=== PATIENT | male | born 1940 | race Caucasian/White ===

== ENCOUNTER 2016-09-04 10:31 | Emergency (ER) | payer MEDICARE ==
[~2016-09-04] VITALS: Ht 175.3 cm; Wt 82.6 kg
[2016-09-04] MEDS ORDERED: LISI-338 PO (10:59)
[2016-09-04 11:39] LABS: BASO % 0 % (0-3); EOS % 3 % (0-3); HEMATOCRIT 42.1 % (39.0-53.0); HEMOGLOBIN 14.4 g/dL (13.0-17.5); LYMPH # 1.9 x10^3/uL (1.0-4.8); LYMPH % 30 % (24-48); MEAN CORPUSCULAR HEMOGLOBIN 32 pg (25-35); MEAN CORPUSCULAR HGB CONC 34 g/dL (31-37); MEAN CORPUSCULAR VOLUME 93 fL (79-100); MONO % 9 % (0-9); NEUT % 58 % (31-73); PLATELET COUNT 189 x10^3/uL (140-400); RED BLOOD COUNT 4.51 x10^6/uL (4.30-5.70); RED CELL DISTRIBUTION WIDTH 13.5 % (11.5-14.5); WHITE BLOOD COUNT 6.3 x10^3/uL (4.0-11.0)
[2016-09-04 11:46] LABS: CALCIUM 9.9 mg/dL (8.5-10.1); CREATININE 0.8 mg/dL (0.7-1.3); POTASSIUM 4.6 mmol/L (3.5-5.1)
--- NOTE | 2016-09-04 11:58 | RAD ---
Indication left hand numbness. Headache and fatigue. Axial images through the head were obtained. No prior imaging of the head is available. The calvarium appears unremarkable. The visualized paranasal sinuses appear normal. There is some underlying atrophy. There is enlargement of the cisterna magna, a normal variant. No mass or midline shift is seen. No hemorrhage is apparent. There is a subtle lucency in the left thalamus. This probably reflects old microvascular disease. If additional imaging evaluation is warranted an MRI examination could be performed. IMPRESSION: No definite acute intracranial finding. Subtle lucency in the left thalamus, probably reflecting old microvascular disease. See above discussion One or more of the following individualized dose reduction techniques were utilized for this examination: 1. Automated exposure control 2. Adjustment of the mA and/or kV according to patient size 3. Use of iterative reconstruction technique
--- NOTE | 2016-09-04 12:45 | PHYS DOC ---
Past Medical History Past Medical History: Asthma, Bronchitis, Hypertension Past Surgical History: Other Additional Past Surgical Histo: hernia repair Alcohol Use: None Drug Use: None Adult General Chief Complaint Chief Complaint: WEAKNESS/GENERALIZED HPI HPI Patient is a 76 year old male who presents with his for evaluation of left hand tingling that lasted minutes associated with gradual onset mild headache and followed by general fatigue. He is now feeling some fatigue, but headache is improving. He denies vision changes, dizziness, nausea or vomiting , chest pain, back pain, palpitations, diaphoresis, fever or chills, focal weakness, neck pain or manipulation, trauma. Review of Systems Review of Systems Constitutional: Denies fever or chills [] Eyes: Denies change in visual acuity, redness, or eye pain [] HENT: Denies nasal congestion or sore throat [] Respiratory: Denies cough or shortness of breath [] Cardiovascular: No additional information not addressed in HPI [] GI: Denies abdominal pain, nausea, vomiting, bloody stools or diarrhea [] : Denies dysuria or hematuria [] Musculoskeletal: Denies back pain or joint pain [] Integument: Denies rash or skin lesions [] Neurologic: Denies focal weakness [] Endocrine: Denies polyuria or polydipsia [] Allergies Allergies Allergies Uncoded Allergies Type Severity Reaction Last Updated Verified cortisone inhaler Adverse Reaction Unknown "they do the opposite" 09/04/16 Physical Exam Physical Exam Constitutional: Well developed, well nourished, no acute distress, non-toxic appearance. [] HENT: Normocephalic, atraumatic, bilateral external ears normal, oropharynx moist, no oral exudates, nose normal. [] Eyes: PERRLA, EOMI. [] Neck: Normal range of motion, supple. [] Cardiovascular:Heart rate regular rhythm [] Lungs & Thorax: Bilateral breath sounds clear to auscultation [] Abdomen: Bowel sounds normal, soft, no tenderness. [] Skin: Warm, dry, no erythema, no rash. [] Back: Normal range of motion. [] Extremities: No tenderness, ROM intact, no edema. [] Neurologic: Alert and oriented X 3, normal motor function, normal sensory function, no focal deficits noted, cranial nerves II through XII intact. [] Psychologic: Affect normal, judgement normal, mood normal. [] Current Patient Data Vital Signs Vital Signs Date Time Temp Pulse Resp B/P (MAP) Pulse Ox O2 Delivery O2 Flow Rate FiO2 09/04/16 12:50 69 18 149/93 (111) 97 Room Air 09/04/16 10:45 97.1 97.1 Lab Values Laboratory Tests Test 09/04/16 10:53 09/04/16 11:11 Glucose (Fingerstick) 88 mg/dL (70-99) White Blood Count 6.3 x10^3/uL (4.0-11.0) Red Blood Count 4.51 x10^6/uL (4.30-5.70) Hemoglobin 14.4 g/dL (13.0-17.5) Hematocrit 42.1 % (39.0-53.0) Mean Corpuscular Volume 93 fL (79-100) Mean Corpuscular Hemoglobin 32 pg (25-35) Mean Corpuscular Hemoglobin Concent 34 g/dL (31-37) Red Cell Distribution Width 13.5 % (11.5-14.5) Platelet Count 189 x10^3/uL (140-400) Neutrophils (%) (Auto) 58 % (31-73) Lymphocytes (%) (Auto) 30 % (24-48) Monocytes (%) (Auto) 9 % (0-9) Eosinophils (%) (Auto) 3 % (0-3) Basophils (%) (Auto) 0 % (0-3) Neutrophils # (Auto) 3.6 x10^3uL (1.8-7.7) Lymphocytes # (Auto) 1.9 x10^3/uL (1.0-4.8) Monocytes # (Auto) 0.6 x10^3/uL (0.0-1.1) Eosinophils # (Auto) 0.2 x10^3/uL (0.0-0.7) Basophils # (Auto) 0.0 x10^3/uL (0.0-0.2) Sodium Level 140 mmol/L (136-145) Potassium Level 4.6 mmol/L (3.5-5.1) Chloride Level 103 mmol/L (98-107) Carbon Dioxide Level 26 mmol/L (21-32) Anion Gap 11 (6-14) Blood Urea Nitrogen 20 mg/dL (8-26) Creatinine 0.8 mg/dL (0.7-1.3) Estimated GFR (Cockcroft-Gault) 94.0 Glucose Level 91 mg/dL (70-99) Calcium Level 9.9 mg/dL (8.5-10.1) Troponin I Quantitative < 0.017 ng/mL (0.000-0.055) Laboratory Tests 09/04/16 11:11 Laboratory Tests 09/04/16 11:11 EKG EKG EKG as interpreted by me as normal sinus rhythm, rate 69, no ST-T changes, normal intervals, no ectopy Radiology/Procedures Radiology/Procedures CT head without contrast IMPRESSION: No definite acute intracranial finding. Subtle lucency in the left thalamus, probably reflecting old microvascular disease. See above discussion DICTATED and SIGNED BY: JEIMY MARKHAM MD DATE: 09/04/16 1149 Course & Med Decision Making Course & Med Decision Making Pertinent Labs and Imaging studies reviewed. (See chart for details) Workup is largely unremarkable. He is now feeling back to baseline. Discussed my concern for TIA and need for urgent workup. Offered admission, but he prefers to follow-up with his primary care doctor workup. Discussed he should take a daily aspirin, which he took one prior to arrival. Return precautions given. He understands and agrees with plan. Dragon Disclaimer Dragon Disclaimer This electronic medical record was generated, in whole or in part, using a voice recognition dictation system. Departure Departure Impression: Primary Impression: TIA (transient ischemic attack) Disposition: 01 HOME, SELF-CARE Condition: STABLE Referrals: ANDREW LLANES MD (PCP) Patient Instructions: Transient Ischemic Attack, [id number] Additional Instructions: Take a baby aspirin daily. Follow-up with your primary care doctor within 2 days. Return for any concerns. Problem Qualifiers Primary Impression: TIA (transient ischemic attack) Transient cerebral ischemia type: unspecified Qualified Codes: G45.9 - Transient cerebral ischemic attack, unspecified Davion SPENCER MD Sep 04, 2016 12:45
[2016-09-04 12:50] VITALS: BP 149/93
--- NOTE | 2016-09-04 12:51 | EKG ---
[facility] [address] [place] [address] Test Date: 2016-09-04 Test Time: 10:46:58 Pat Name: UBALDO GODINEZ Department: Room: Gender: [employer]: : 1940 Requested By: Davion SPENCER Order Number: [id number] Reading MD: Nathalie Holland Measurements Intervals [place] Rate: 69 P: 39 CO: 172 QRS: 37 QRSD: 86 T: 28 QT: 368 QTc: 396 Interpretive Statements SINUS RHYTHM NORMAL EKG Electronically Signed On 09-06-2016 22:37:48 CDT by Nathalie Holland
== END 2016-09-04 12:55 | disposition home or self-care (01) ==
LOC: ER 10:31
DX: G45.9 Transient cerebral ischemic attack, unspecified (principal); I10 Essential (primary) hypertension; J45.909 Unspecified asthma, uncomplicated; Z88.8 Allergy status to other drugs, medicaments and biological substances
CPT/HCPCS: 36415; 70450; 80048; 82962; 84484; 85027; 93005; 99285-25